=== PATIENT | male | born 1995 | race Caucasian/White ===

== ENCOUNTER 2018-09-19 13:44 | Emergency (ER) | payer BC, OTHER ==
[~2018-09-19] VITALS: Ht 170.2 cm; Wt 103.9 kg
[2018-09-19 13:53] VITALS: Ht 170.2 cm; Wt 103.9 kg
[2018-09-19 15:03] VITALS: BP 179/98
== END 2018-09-19 15:03 | disposition home or self-care (01) ==
LOC: ED 13:44
DX: L03.115 Cellulitis of right lower limb (principal); R10.30 Lower abdominal pain, unspecified; W57.XXXA Bitten or stung by nonvenomous insect and other nonvenomous arthropods, initial encounter; Y93.89 Activity, other specified; Y92.89 Other specified places as the place of occurrence of the external cause; Y99.8 Other external cause status
CPT/HCPCS: J0696